=== PATIENT | male | born 1950 | race Caucasian/White ===

== ENCOUNTER 2021-04-26 05:23 | Inpatient (IN) | payer MEDICARE, BC ==
[2021-04-20 14:18] LABS: BASOPHILS # (AUTO) 0.1 X10'3 (0-0.2); BASOPHILS % (AUTO) 1.4 % (0-1); EOSINOPHILS # (AUTO) 0.4 X10'3 (0-0.9); EOSINOPHILS % (AUTO) 4.4 % (0-6); LYMPHOCYTES # (AUTO) 1.8 X10'3 (1.1-4.8); LYMPHOCYTES % (AUTO) 17.5 % (21-51); MEAN CORPUSCULAR HEMOGLOBIN 28.1 PG (27.0-31.0); MEAN CORPUSCULAR HGB CONC 32.9 g/dL (33.0-36.5); MEAN CORPUSCULAR VOLUME 85.4 FL (78-98); MEAN PLATELET VOLUME 7.5 FL (7.4-10.4); MONOCYTES # (AUTO) 0.6 X10'3 (0-0.9); MONOCYTES % (AUTO) 5.8 % (2-12); NEUTROPHILS # (AUTO) 7.2 X10'3 (1.8-7.7); NEUTROPHILS % (AUTO) 70.9 % (42-75); PRE OP HEMATOCRIT 43.6 % (42.0-52.0); PRE OP HEMOGLOBIN 14.3 g/dL (14.0-17.9); PRE OP PLATELET COUNT 390 X10'3 (140-440); RED BLOOD COUNT 5.11 X10'6 (4.70-6.10); RED CELL DISTRIBUTION WIDTH 20.1 % (11.5-14.5)
[2021-04-20 14:27] LABS: CLARITY,URINE CLEAR (Clear); COLOR,URINE YELLOW (Yellow); GLUCOSE, URINE NEGATIVE (Neg); KETONES,URINE NEGATIVE (Neg); LEUKOCYTE ESTERASE ,URINE NEGATIVE (Neg); NITRITES, URINE NEGATIVE (Neg); OCCULT BLOOD,URINE NEGATIVE (Neg); PROTEIN,URINE NEGATIVE (Neg); UROBILINOGEN,URINE 0.2 E.U/dL (0.2-1.0)
[2021-04-20 14:28] LABS: UA COLLECTION TYPE CLN CATCH MIDSTREAM
[2021-04-20 14:36] LABS: ALBUMIN 3.8 G/DL (3.4-5.0); ALBUMIN/GLOBULIN RATIO 1.1 (1.1-1.5); ALKALINE PHOSPHATASE 84 IU/L (46-116); BLOOD UREA NITROGEN 19 MG/DL (7-18); BUN/CREATININE RATIO 16.4 (5.4-32.0); CALCIUM 9.1 MG/DL (8.5-10.1); CHLORIDE 103 MMOL/L (99-107); CREATININE 1.16 MG/DL (0.60-1.10); PRE OP ALT 30 U/L (30-65); PRE OP ANION GAP 9 (8-16); PRE OP AST 18 U/L (10-37); PRE OP BILIRUB, TOTAL 0.6 MG/DL (0.0-1.0); PRE OP GLUCOSE 94 MG/DL (70-104); PRE OP SODIUM 140 MMOL/L (135-145); TOTAL CARBON DIOXIDE 27.9 MMOL/L (24-32); TOTAL PROTEIN 7.2 G/DL (6.4-8.2); eGFR 62 ML/MIN
[2021-04-20 14:52] LABS: PLATELET ESTIMATE NORMAL
[2021-04-20 14:53] LABS: ANISOCYTOSIS 3+
[2021-04-26] VITALS (19 sets, daily range): BP systolic 93–158; BP diastolic 53–99
[~2021-04-26] VITALS: Ht 177.8 cm; Wt 81.6 kg
[~2021-04-26 05:23] MED LIST: ACET-2007 PO; HYDR25TA5 PO; MELO15TA13 PO; METH2.5T PO
[2021-04-26] MEDS ORDERED: celeCOXIB 100mg capsule PO ONE (05:30)
[2021-04-26] MEDS ORDERED: cefazolin/dext.iso 2gm/50ml IV ONE (05:30)
[2021-04-26] MEDS ORDERED: famotidine 20mg tablet PO ONE (05:30)
[2021-04-26] MEDS ORDERED: gabapentin 300mg capsule PO ONE (05:30)
[2021-04-26] MEDS ORDERED: tranexamic acid inj. 1,000 MG in 0.7% saline 100 ML PMX IV ONE (05:30)
[2021-04-26] MEDS ORDERED: vancomycin 1,500 MG in NS 300ml IV soln IV ONE (05:30)
[2021-04-26] MEDS ORDERED: oxyCODONE SR 10mg (sust. release) tab -2 tabs (20mg) PO ONE (05:30)
[2021-04-26] MEDS ORDERED: acetaminophen 325mg tablet PO ONE (05:30)
[2021-04-26] MEDS ORDERED: metoclopramide 5 mg/ml inj IV ONE (05:30)
[2021-04-26] MEDS ORDERED: LIDOcaine 1% (10mg/ml) 2ml vial ONE (05:41)
[2021-04-26] MEDS: ringers solution, lacted 1,000 ML IV SCH ×2 (06:01→13:59)
[2021-04-26] MEDS ORDERED: oxyCODONE/APAP 10/325mg tablet PO PRN (06:30)
[2021-04-26] MEDS ORDERED: ondansetron/PF 4mg/2ml inj IV PRN ×2 (06:30→08:00)
[2021-04-26] MEDS ORDERED: diphenhydrAMINE 25mg capsule PO PRN ×2 (06:30)
[2021-04-26] MEDS ORDERED: bisacodyl 10mg suppository rectal RC PRN (06:30)
[2021-04-26] MEDS: potassium cl 20mEq in 1/2 NS 1,000 ML IV SCH ×3 (06:30→22:30)
[2021-04-26] MEDS ORDERED: HYDROmorphone 1 mg/ml syringe IV PRN (06:30)
[2021-04-26] MEDS ORDERED: acetaminophen 325mg tablet PO PRN (06:30)
[2021-04-26] MEDS ORDERED: magnesium hydroxide 30ml (MOM) UD suspension PO PRN (06:30)
[2021-04-26] MEDS ORDERED: HYDROmorphone inj. 0.5 MG/0.5 ML DISP.SYRIN IV PRN (06:30)
[2021-04-26] MEDS ORDERED: epiNEPHrine 1 mg/ml inj ONE (07:06)
[2021-04-26] MEDS ORDERED: ketorolac trometh. 30mg/ml inj. ONE (07:06)
[2021-04-26] MEDS ORDERED: vancomycin 1,000mg inj ONE (07:07)
[2021-04-26] MEDS ORDERED: tranexamic acid 100mg/ml inj. ONE (07:07)
[2021-04-26] MEDS ORDERED: ROPIVAcaine 0.5% (5mg/ml) 30ml vial ONE ×2 (07:07→09:22)
[2021-04-26] MEDS ORDERED: cloNIDine hcl/PF 100mcg/ml inj ONE (07:07)
[2021-04-26] MEDS: ROPIVAcaine 0.2%/PF PUMP/bolus 545 ML ADDCANAL SCH (08:00)
[2021-04-26] MEDS ORDERED: morphine 2 MG/ML inj. syringe IV PRN (08:00)
[2021-04-26] MEDS: multivitamins, therapeutics tablet PO SCH (08:00)
[2021-04-26] MEDS ORDERED: ringers solution, lacted 1,000 ML IV SCH (08:00)
[2021-04-26] MEDS ORDERED: fentaNYL/PF 50MCG/1 ML 2ML syringe IV PRN ×2 (08:00)
[2021-04-26] MEDS: ascorbic acid 500mg tablet PO SCH ×2 (08:00→20:23)
[2021-04-26] MEDS ORDERED: morphine 4 MG/ML inj SYRINge IV PRN (08:00)
[2021-04-26] MEDS ORDERED: ROPIVAcaine 0.2% (10 MG/5 ML) BOLUS INJECTION ADDCANAL PRN (08:00)
[2021-04-26] MEDS ORDERED: hydrALAZINE 20mg/ml inj. IV PRN (08:00)
[2021-04-26] MEDS: gabapentin 300mg capsule PO SCH ×3 (08:00→20:23)
[2021-04-26] MEDS ORDERED: labetalol 20mg/4ml (5mg/ml) syringe IV PRN (08:00)
[2021-04-26] MEDS ORDERED: FENTANYL CITRATE/PF 50 MCG/1 ML VIAL ONE (08:04)
[2021-04-26] MEDS ORDERED: MIDAZolam 1mg/ml 10ml vial ONE (08:04)
[2021-04-26] MEDS ORDERED: propofol inj 20 ML IV ONE ×2 (08:23)
[2021-04-26] MEDS ORDERED: LIDOcaine 2% (20mg/ml) 5ml vial ONE (08:24)
[2021-04-26] MEDS: aspirin 325mg tablet PO SCH (08:30)
[2021-04-26] MEDS ORDERED: ondansetron/PF 4mg/2ml inj ONE (08:37)
--- NOTE | 2021-04-26 10:14 | NUR ---
Received from OR via bed with gentry, accompanied by Anesthesiologist Cheyenne and report given by Anesthesiolgist. Pt is easily arousable, o2 at 10 ltr face mask. vital signs are stable. iv site checked no signs of infiltration, right distale pulses palpable, bilateral lower extremities are warm pink and dry. no fraire present, spinal numbness to L-1 area. pt denies pain at this time. onq ball attached to catheter in right adductor canal.
--- NOTE | 2021-04-26 11:16 | NUR ---
report called to Symone MORALES, slight dip in blood pressure after head of bed slightly elevated. will monitor until stabilized. Symone advised slight delay Addendum: 04/26/21 at 1118 by Dipika Borjas RN Amended: Links added.
--- NOTE | 2021-04-26 11:24 | NUR ---
pt transported to [facility] via bed. pt remains pain free, all belongings with pt, vital signs stable, nurse Symone at bedside to receive pt. Addendum: 04/26/21 at 1212 by Dipika Borjas RN Amended: Links added.
[2021-04-26] MEDS ORDERED: tranexamic acid 1gm/0.7% sal. 100 ML IV ONE (12:00)
[2021-04-26] MEDS ORDERED: cefazolin/dext.iso 2gm/100ml 100 ML IV SCH (16:00)
--- NOTE | 2021-04-26 18:10 | NUR ---
Problems reprioritized. Patient report given, questions answered & plan of care reviewed with PARTHA CHAVIS RN.
--- NOTE | 2021-04-26 18:30 | NUR ---
Patient in room [facility]. I have received report from LONG MORALES and had the opportunity to ask questions and assume patient care.
[2021-04-26] MEDS: ceFAZolin 2gm in dextrose, iso 50 ML IV SCH (18:33)
[2021-04-26] MEDS: oxyCODONE/APAP 10/325mg tablet PO PRN (18:34)
[2021-04-26] MEDS ORDERED: sennosides 8.6mg tablet PO SCH (21:00)
[2021-04-27] VITALS: BP 130/69
[2021-04-27] MEDS: ceFAZolin 2gm in dextrose, iso 50 ML IV SCH (01:05)
[2021-04-27] MEDS: potassium cl 20mEq in 1/2 NS 1,000 ML IV SCH (02:11)
[2021-04-27 04:00] VITALS: BP 133/75
[2021-04-27] MEDS: oxyCODONE/APAP 10/325mg tablet PO PRN ×3 (05:41→15:21)
[2021-04-27 05:55] LABS: BASOPHILS # (AUTO) 0.1 X10'3 (0-0.2); BASOPHILS % (AUTO) 0.9 % (0-1); EOSINOPHILS # (AUTO) 0.5 X10'3 (0-0.9); EOSINOPHILS % (AUTO) 5.6 % (0-6); HEMATOCRIT 32.6 % (42.0-52.0); HEMOGLOBIN 10.9 g/dl (14.0-17.9); LYMPHOCYTES # (AUTO) 1.3 X10'3 (1.1-4.8); LYMPHOCYTES % (AUTO) 14.4 % (21-51); MEAN CORPUSCULAR HGB CONC 33.5 g/dL (33.0-36.5); MEAN CORPUSCULAR VOLUME 86.7 FL (78-98); MEAN PLATELET VOLUME 7.6 FL (7.4-10.4); MONOCYTES # (AUTO) 0.8 X10'3 (0-0.9); NEUTROPHILS # (AUTO) 6.1 X10'3 (1.8-7.7); NEUTROPHILS % (AUTO) 70.1 % (42-75); PLATELET COUNT 295 X10'3 (140-440); RED BLOOD COUNT 3.76 X10'6 (4.70-6.10); RED CELL DISTRIBUTION WIDTH 19.9 % (11.5-14.5); WHITE BLOOD COUNT 8.7 X10'3 (4.5-11.0)
[2021-04-27 06:07] LABS: ANION GAP 6 (8-16); CHLORIDE 103 MMOL/L (99-107); POTASSIUM 3.7 MMOL/L (3.5-5.1); SODIUM 138 MMOL/L (135-145)
--- NOTE | 2021-04-27 06:30 | NUR ---
Problems reprioritized. Patient report given, questions answered & plan of care reviewed with DELIA MORALES.
--- NOTE | 2021-04-27 06:30 | NUR ---
Patient in room [facility]. I have received report from Blanca Rios RN and had the opportunity to ask questions and assume patient care.
[2021-04-27 07:47] VITALS: BP 127/74
[2021-04-27] MEDS ORDERED: HYDROchlorothiazide 25mg tablet PO SCH (08:00)
[2021-04-27] MEDS: multivitamins, therapeutics tablet PO SCH (10:16)
[2021-04-27] MEDS: ascorbic acid 500mg tablet PO SCH (10:16)
[2021-04-27] MEDS: aspirin 325mg tablet PO SCH (10:17)
[2021-04-27] MEDS: gabapentin 300mg capsule PO SCH ×2 (10:17→15:14)
[2021-04-27 11:00] VITALS: BP 128/64
[2021-04-27] MEDS: ROPIVAcaine 0.2%/PF PUMP/bolus 545 ML ADDCANAL SCH (12:03)
--- NOTE | 2021-04-27 16:00 | NUR ---
Amb pt in tran with FWW 200 ft. Pt steady and able to navigate obstacles. Pt states his only step in in the garage and he will not be going in or out that way so not provided step training. Pt feels comfortable with DC at this time. Pt has FWW already in his rides vehicle.
[2021-04-27] MEDS ORDERED: celeCOXIB 100mg capsule PO SCH (20:00)
== END 2021-04-27 16:58 | disposition home or self-care (01) | DRG 470 ==
LOC: PAS 05:23 → PAS IN 06:31 → EDSTATUS 08:15 → SUR 3N 11:36
PROVIDERS: ADMIT Orthopaedic Surgery; ATTEND Orthopaedic Surgery
PROC: 3E0T3BZ Introduction of Anesthetic Agent into Peripheral Nerves and Plexi, Percutaneous Approach (ICD-10-PCS; 2021-04-26)
PROC: 3E0T33Z Introduction of Anti-inflammatory into Peripheral Nerves and Plexi, Percutaneous Approach (ICD-10-PCS; 2021-04-26)
PROC: 0SRC0J9 Replacement of Right Knee Joint with Synthetic Substitute, Cemented, Open Approach (ICD-10-PCS; principal; 2021-04-26 08:03)
DX: M17.11 Unilateral primary osteoarthritis, right knee (principal); M25.761 Osteophyte, right knee; Z79.899 Other long term (current) drug therapy
CPT/HCPCS: 36415; 71046; 73560; 80051; 80053; 81003; 82948; 85008; 85025; 86885; 86900; 86901; 87081; 93005; 97110; 97161; 97530; A4215; A6449; A7000; C1713; C1776; G0378; J0171; J0690; J0735; J1885; J2250; J2405; J2704; J2765; J2795; J3010; J3370; J3480; J3490; J7040; J7120; U0003; U0005